=== PATIENT | male | born 1995 | race Caucasian/White ===

== ENCOUNTER 2020-12-07 12:56 | Outpatient (CLI) | payer BC, SELFPAY ==
[2020-12-07 14:58] LABS: SARS-CoV-2 Ag Positive (Negative)
== END 2020-12-07 12:57 | disposition home or self-care (01) ==
LOC: CHSLAB 13:02
PROVIDERS: PCP Physician Assistant; Visit Provider Nurse Practitioner Psychiatric/Mental Health
DX: U07.1 COVID-19 (principal); R50.9 Fever, unspecified
CPT/HCPCS: 87426; C9803